=== PATIENT | male | born 1970 | race Hispanic/Latino ===

== ENCOUNTER 2018-07-31 13:27 | Emergency (ER) | payer BC ==
--- NOTE | 2018-07-31 14:21 | Emergency Department Report ---
Blank Doc - Documentation Documentation: This is a 48 y.o. male that presents with syncope while smoking outside. PMH of HTN, OKSANA, asthma, lumbar DDD, DM2, and tobacco abuse. He fell backward from a bench while smoking outside at [facility]. He reports hitting head on concrete. There is swelling and pain to occipital scalp. Patient is on a 1013 and sent here for further evaluation. Ordered: CT of head Fast track for further evaluation.
--- NOTE | 2018-07-31 18:04 | Cat Scan Report ---
FINAL REPORT EXAM: CT HEAD/BRAIN WO CON HISTORY: swelling and bruising to occipital scalp TECHNIQUE: Standard unenhanced CT of the head at 5.0 millimeter axial increments. PRIORS: None. FINDINGS: The ventricular system is normal in size and configuration. There is no evidence for parenchymal volu me loss. There is no evidence for mass lesion, mass effect, midline shift, acute intracranial hemorrhage, or a cute ischemia/ infarction. No evidence for acute skull fracture is seen. There is soft tissue scalp swelling over the posterior left parietal region. Visualized paranasal sinuses are clear. IMPRESSION: Scalp swelling over the posterior left parietal region. No acute intracranial process noted.
--- NOTE | 2018-07-31 19:24 | Emergency Department Report ---
ED General Adult HPI - General Chief complaint: Syncope Stated complaint: SYNCOPE Time Seen by Provider: 07/31/18 14:16 Source: patient, EMS (ems notes not available at time of chart dictation) Mode of arrival: Ambulatory Limitations: No Limitations - History of Present Illness Initial comments: His is a 48-year-old gentleman. The patient has a history of arthritis, diabetes, obstructive sleep apnea, hypertension, depression, history of surgically associated lower extremity DVT. The patient is currently sent from a psychiatric hospital for evaluation. The patient reports being in his usual state of health," fell backwards." He reports that prior to falling, he had no complaints. He specifically denied preceding headache, neck pain, chest pain, abdominal pain, shortness of breath. He denies recent surgeries, travel, leg pain, leg swelling, calf pain, calf swelling, immobilization. As per enclosed documentation, it appears that the patient may have had a seizure and fall. The patient complains of occipital scalp pain, but denies other new, acute complaints. Apparently, he is not allowed access to his CPAP. His medications include ibuprofen, Seroquel, Zoloft, HCTZ, Pepcid, losartan, metformin, Neurontin, fish oil, and theragran He reports he is up-to-date with tetanus vaccinations. Patient to me makes no complaint of homicidality, suicidality. -: Sudden Location: head Radiation: non-radiation Severity scale (0 -10): 9 Quality: aching Consistency: constant Improves with: rest Worsens with: movement Associated Symptoms: confusion (patient reports postevent confusion, now resolved), headaches, seizure (reported seizure). denies: chest pain, cough, diaphoresis, fever/chills, loss of appetite, malaise, nausea/vomiting, rash, shortness of breath, syncope (there is no report of syncope to me), weakness - Related Data Previous Rx's Medication Instructions Recorded Last Taken Type Potassium Chloride [K-Dur] 20 meq PO BID #28 tab 07/31/18 Unknown Rx Allergies Allergy/AdvReac Type Severity Reaction Status Date / Time No Known Allergies Allergy Verified 07/31/18 14:17 ED Review of Systems ROS: Stated complaint: SYNCOPE Other details as noted in HPI Constitutional: denies: fever Eyes: denies: vision change ENT: denies: epistaxis Respiratory: denies: cough Cardiovascular: denies: chest pain Gastrointestinal: denies: abdominal pain Genitourinary: denies: dysuria Musculoskeletal: other (reports chronic musculoskeletal pain) Skin: other (occipital abrasion) Neurological: headache. denies: weakness, numbness, paresthesias, confusion Psychiatric: denies: homicidal thoughts, suicidal thoughts ED Past Medical Hx - Past Medical History Previous Medical History?: Yes Hx Hypertension: Yes Hx Diabetes: Yes (type2) Hx Deep Vein Thrombosis: Yes Hx Arthritis: Yes Hx Psychiatric Treatment: Yes (Major depressive disordor) Hx Asthma: Yes Additional medical history: sleep apnea - Surgical History Past Surgical History?: Yes Additional Surgical History: right femur orif, left hip replacement - Social History Smoking Status: Current Every Day Smoker - Medications Home Medications: Home Medications Medication Instructions Recorded Confirmed Last Taken Type Potassium Chloride [K-Dur] 20 meq PO BID #28 tab 07/31/18 Unknown Rx ED Physical Exam - General Limitations: No Limitations General appearance: alert, in no apparent distress - Head Head exam: Present: normocephalic. Absent: atraumatic (there is an occipital abrasion) - Eye Eye exam: Present: normal appearance, PERRL, EOMI, other (visual acuity intact to finger counting, color perception, reading at a close distance). Absent: nystagmus - ENT ENT exam: Present: normal exam, normal orophraynx, mucous membranes moist, TM's normal bilaterally, other (there is no nasal septal hematoma. There is no hemotympanum) - Neck Neck exam: Present: normal inspection, full ROM. Absent: tenderness, meningismus - Respiratory Respiratory exam: Present: normal lung sounds bilaterally. Absent: respiratory distress - Cardiovascular Cardiovascular Exam: Present: regular rate, normal rhythm, normal heart sounds. Absent: bradycardia, tachycardia, irregular rhythm, systolic murmur, diastolic murmur, rubs, gallop - GI/Abdominal GI/Abdominal exam: Present: soft. Absent: distended, tenderness, guarding, rebound, rigid, pulsatile mass - Rectal Rectal exam: Present: deferred - Extremities Exam Extremities exam: Present: normal inspection, full ROM, other (2+ pulses noted in the bilateral upper, lower extremities. Compartments soft. No long bony tenderness. The pelvis is stable.). Absent: pedal edema, joint swelling, calf tenderness - Back Exam Back exam: Present: normal inspection, full ROM. Absent: tenderness, CVA tenderness (R), paraspinal tenderness, vertebral tenderness - Neurological Exam Neurological exam: Present: alert, oriented X3, CN II-XII intact, normal gait, other (Extraocular movements intact. Tongue midline. No facial droop. Facial sensation intact to light touch in the V1, V2, V3 distribution bilaterally. 5 and 5 strength in 4 extremities.. Sensation is intact to light touch in 4 extremities.). Absent: motor sensory deficit - Psychiatric Psychiatric exam: Present: normal affect, normal mood - Skin Skin exam: Present: warm, abrasion, ecchymosis ED Course Vital Signs 07/31/18 07/31/18 14:00 19:25 Temperature 98.0 F Pulse Rate 83 56 L Respiratory 14 17 Rate Blood Pressure 168/90 144/75 [Right] O2 Sat by Pulse 97 98 Oximetry - Reevaluation(s) Reevaluation #1: 07/31/18 20:29 Differential diagnosis, including but not limited to: Concussion, abrasion, intracranial injury, seizure, electrolyte derangement Assessment and plan: 48-year-old gentleman who reports falling back and hitting his head, and having some retrograde amnesia. He may have had a seizure. It is uncertain. The patient currently has a [place] Coma Scale of 15, with an NIH score of 0. He is not tachycardic and he is not hypoxic, and does not appear to have acute risk factors for DVT or pulmonary embolus. He is up-to-date with tetanus vaccination. Patient is clinically sober at this time. The cervical spine is cleared through nexus and grenadian c spine rule The patient is currently watching TV, eating, and in no acute distress. Screening laboratory studies were unremarkable with the exception of hypokalemia, which will be orally repleted. Creatinine kinase of 558 does not meet the definition criteria of rhabdomyolysis, and it will decrease on its own with IV hydration, the patient also has normal renal function. EKG was unremarkable with the exception of slightly prolonged QTC. Patient will be discharged with potassium supplementation, recommendations to hold medications that would prolonged QTC, to discontinue or taper down sedating medications, to reinitiate patient's BiPAP/CPAP therapy at night, and to avoid driving or operating motor vehicles for the next 6 months. 07/31/18 20:31 Reevaluation #2: 07/31/18 20:46 The patient is observed in the emergency room for greater than 7 hours without clinical decompensation. He is medically suitable for discharge at this point in time. ED Medical Decision Making - Lab Data Result diagrams: 07/31/18 19:33 07/31/18 19:33 Vital Signs 07/31/18 07/31/18 14:00 19:25 Temperature 98.0 F Pulse Rate 83 56 L Respiratory 14 17 Rate Blood Pressure 168/90 144/75 [Right] O2 Sat by Pulse 97 98 Oximetry Lab Results 07/31/18 07/31/18 Range/Units 19:33 19:33 WBC 11.5 H (4.5-11.0) K/mm3 RBC 4.29 (3.65-5.03) M/mm3 Hgb 14.1 (11.8-15.2) gm/dl Hct 41.8 (35.5-45.6) % MCV 97 H (84-94) fl MCH 33 H (28-32) pg MCHC 34 (32-34) % RDW 15.5 H (13.2-15.2) % Plt Count 292 (140-440) K/mm3 Sodium 140 (137-145) mmol/L Potassium 3.0 L (3.6-5.0) mmol/L Chloride 100.5 (98-107) mmol/L Carbon Dioxide 23 (22-30) mmol/L Anion Gap 20 mmol/L BUN 12 (9-20) mg/dL Creatinine 0.8 (0.8-1.5) mg/dL Estimated GFR > 60 ml/min BUN/Creatinine Ratio 15 % Glucose 135 H (75-100) mg/dL Calcium 9.4 (8.4-10.2) mg/dL Magnesium 2.30 (1.7-2.3) mg/dL Total Creatine Kinase 558 H (55-170) units/L - EKG Data -: EKG Interpreted by Nv EKG shows normal: sinus rhythm Rate: normal - EKG Data 07/31/18 20:32 Sinus rhythm, 74 bpm, normal axis, QTC prolonged, 554 ms, or Atrial enlargement, poor R wave progression, abnormal EKG, not consistent with ST elevation myocardial infarction. - Radiology Data Radiology results: report reviewed, image reviewed Noncontrast CT scan of the brain is negative for acute disease. Critical care attestation.: If time is entered above; I have spent that time in minutes in the direct care of this critically ill patient, excluding procedure time. ED Disposition Clinical Impression: Concussion, Hypokalemia, Medical clearance for psychiatric admission Disposition: DC/TX-65 PSY HOSP/PSY UNIT Is pt being admited?: No Does the pt Need Aspirin: No Condition: Stable Additional Instructions: I recommend the patient be allowed to continue his CPAP therapy at night to help avoid additional episodes. I recommend discontinuation or tapering of sedating medications. I recommend discontinuation or tapering of medications that would prolonged QTc interval. The patient to take the potassium supplementation as directed. I recommend the patient not drive or operate motor vehicles for the next 6 months. I recommend the patient follow up with the medical doctor for follow-up of his low potassium within the next 2 weeks. The patient should follow-up with patricia rology specialist within the next 2 weeks. The patient should avoid contact sports, and strenuous physical activities. Please return to the emergency room right away with new, worsening or different symptoms. Prescriptions: Potassium Chloride [K-Dur] 20 meq PO BID #28 tab Referrals: DEL JORDAN MD [Primary Care Provider] - 3-5 Days PRETTY WASHINGTON MD [Referring] - 3-5 Days [facility] [Provider Group] - 3-5 Days
[2018-07-31 19:46] VITALS: BP 144/75
[2018-07-31 19:52] LABS: Hematocrit 41.8 % (35.5-45.6); Hemoglobin 14.1 gm/dl (11.8-15.2); Mean Corpuscular HGB Conc 34 % (32-34); Mean Corpuscular Volume 97 fl (84-94); Platelet Count 292 K/mm3 (140-440); Red Blood Count 4.29 M/mm3 (3.65-5.03); Red Cell Distribution Width 15.5 % (13.2-15.2)
[2018-07-31] MEDS ORDERED: IBUPROFEN PO ONE ×2 (19:55→20:02)
[2018-07-31 20:28] LABS: BUN/Creatinine Ratio 15; Blood Urea Nitrogen 12 mg/dL (9-20); Calcium 9.4 mg/dL (8.4-10.2); Hemolysis Index 5
[2018-07-31] MEDS ORDERED: K-DUR PO ONE (20:31)
== END 2018-07-31 21:10 ==
LOC: ED 13:27
DX: S06.0X9A Concussion with loss of consciousness of unspecified duration, initial encounter (principal); E87.6 Hypokalemia; E11.9 Type 2 diabetes mellitus without complications; M19.90 Unspecified osteoarthritis, unspecified site; I10 Essential (primary) hypertension; F32.9 Major depressive disorder, single episode, unspecified; F17.200 Nicotine dependence, unspecified, uncomplicated; G47.33 Obstructive sleep apnea (adult) (pediatric); Z86.718 Personal history of other venous thrombosis and embolism; Z96.642 Presence of left artificial hip joint; X58.XXXA Exposure to other specified factors, initial encounter; Y93.89 Activity, other specified; Y92.89 Other specified places as the place of occurrence of the external cause; Y99.8 Other external cause status
CPT/HCPCS: 36415; 70450; 80048; 82550; 83735; 85027; 93005; 93010; 99285; G0480; 80320

== ENCOUNTER 2018-10-25 15:19 | Outpatient (CLI) | payer BC ==
--- NOTE | 2018-10-25 15:50 | XRay Report ---
X-RAY LEFT ELBOW THREE VIEWS: 10/25/18 15:19:00 CLINICAL: Left elbow pain. FINDINGS: A chronic mildly displaced traumatic avulsion fracture of the lateral epicondyle of the humerus. No acute fracture or dislocation. A large triceps insertion enthesophyte. No joint effusion. Normal soft tissues. IMPRESSION: Chronic avulsion fracture of the lateral epicondyle of the humerus and triceps enthesopathy. No acute change.
== END 2018-10-25 15:20 | disposition home or self-care (01) ==
LOC: SPVIMAG 15:19
PROVIDERS: ATTEND Internal Medicine
DX: S42.435A Nondisplaced fracture (avulsion) of lateral epicondyle of left humerus, initial encounter for closed fracture (principal); I10 Essential (primary) hypertension; J45.909 Unspecified asthma, uncomplicated; X58.XXXA Exposure to other specified factors, initial encounter; Y93.89 Activity, other specified; Y92.89 Other specified places as the place of occurrence of the external cause; Y99.8 Other external cause status

== ENCOUNTER 2018-11-20 10:01 | Outpatient (CLI) | payer BC ==
--- NOTE | 2018-11-21 22:28 | Magnetic Resonance Report ---
EXAM: MRI LEFT ELBOW WITHOUT CONTRAST COMPARISON: None available. CLINICAL STATEMENT: Elbow pain. TECHNIQUE: Routine MRI LEFT elbow per institution protocol. MPR. Image quality satisfactory. FINDINGS: MEDIAL: Ulnar collateral ligament: Intact Common flexor tendon: Intact Medial epicondyle: Intact LATERAL: Radial collateral ligament: Intact Lateral ulnar collateral ligament: Intact Common extensor tendon: Mild tendinosis, no tear ANTERIOR: Biceps: Intact Brachialis: Intact POSTERIOR: Triceps: Moderate insertional tendinosis Olecranon: Intact OSSEOUS/ARTICULAR STRUCTURES: Bone marrow signal appears normal without identified fracture, dislocation or avascular necrosis. No high-grade articular cartilage loss of the radiocapittelar or ulnotrochlear articulation. NERVES: Ulnar: Cubital tunnel normal, retinaculum intact. No anconeous epitrochlearis muscle present. Radial/Median: Normal signal intensity. MISCELLANEOUS: No significant joint effusion. No intraarticular body. Subcutaneous edema at the radial distal arm/proximal forearm. IMPRESSION: 1. Triceps insertional and mild common extensor tendinosis. No discrete tear. 2. Subcutaneous edema, nonspecific finding which may be secondary to cellulitis, superficial thrombop hlebitis, or fluid retention. Correlation with exam requested. This document is electronically signed by Johnny Whitlock DO., November 21 2018 10:26:57 PM ET
== END 2018-11-20 10:02 | disposition home or self-care (01) ==
LOC: SPVIMAG 10:01
PROVIDERS: ATTEND Orthopaedic Surgery
DX: M77.12 Lateral epicondylitis, left elbow (principal); I10 Essential (primary) hypertension; J45.909 Unspecified asthma, uncomplicated